=== PATIENT | male | born 1955 | race Caucasian/White ===

== ENCOUNTER → 2023-03-07 10:39 | Outpatient (CLI) | payer MEDICARE, SELFPAY ==
[2023-03-07 12:36] LABS: Alanine Aminotransferase 26 IU/L (<50); Albumin 4.1 g/dL (3.5-5.0); Albumin Globulin Ratio 1.4 (1.0-2.8); Alkaline Phosphatase 61 U/L (38-126); Aspartate Aminotransferase 25 IU/L (17-59); BUN Creatinine Ratio 20.5 (6-22); Bilirubin Total 0.6 mg/dL (0.2-1.3); Blood Urea Nitrogen 18 mg/dL (9-20); Calcium 8.6 mg/dL (8.4-10.2); Carbon Dioxide 30 mmol/L (22-32); Chloride 102 mmol/L (98-107); Cholesterol 202 mg/dL (140-199); Estimated Glomerular Filt Rate > 60 mL/min (>60); Globulin 2.9 g/dL (1.7-4.1); Glucose 94 mg/dL (80-110); HDL Cholesterol 66 mg/dL (40-60); HEMOLYSIS < 15 (0-50); LDL Cholesterol Calculated 112 mg/dL (<100); Potassium 3.9 mmol/L (3.4-5.1); Sodium 137 mmol/L (137-145); Triglycerides 121 mg/dL (35-150)
[2023-03-08 06:05] LABS: Labcorp Hemoglobin (Hb) A1c 5.6 % (4.8-5.6)
== END ==
PROVIDERS: PCP Family Medicine; Referring Provider Family Medicine; Visit Provider Family Medicine
DX: I10 Essential (primary) hypertension; F41.1 Generalized anxiety disorder
CPT/HCPCS: 36415; 80053; 80061; 83036

== ENCOUNTER → 2024-05-02 09:47 | Outpatient (CLI) | payer MEDICARE, SELFPAY ==
--- NOTE | 2024-05-02 09:49 | DI.NM.S_ITS ---
PROCEDURE: NM BONE 3 PHASE RADIOPHARMACEUTICAL: 21.4 mCi Tc-99m MDP IV. INDICATIONS: Pain due to internal orthopedic prosthetic devices TECHNIQUE: Multiple bone scintigrams were obtained after intravenous injection of Tc-99m MDP, including flow, blood pool, and delayed images centered to the region of interest. COMPARISON: [facility], CR, XR KNEE 4+ VIEWS LEFT, 04/10/2024, 9:08. FINDINGS: Flow images are relatively symmetric. Blood pool images shows very slightly increased right to radiotracer uptake. There is photopenia corresponding to the left knee arthroplasty. Delayed images show ibik-dv-agbsduji uptake surrounding the left knee arthroplasty, particularly at the tibial component, and patella. Slightly more significant periarticular uptake is seen in the right knee, corresponding to advanced degenerative changes. IMPRESSION: Ytdi-ph-lateajlz uptake around the left knee arthroplasty particularly at the patellar and tibial component, likely postsurgical changes. Differential includes early loosening. Lack of flow and blood pool uptake argues against infection. Slightly more intense uptake around the right knee, likely advanced degenerative changes. Dictated by: Jimmy Tellez M.D. on 05/02/2024 at 16:28 Approved by: Jimmy Tellez M.D. on 05/02/2024 at 16:31
--- NOTE | 2024-05-02 10:17 | DI.MRI.S_ITS ---
PROCEDURE: MR CERVICAL SPINE WO CON INDICATIONS: RADICULOPATHY TECHNIQUE: Noncontrast sagittal T1 spin echo and T2 fast spin echo, sagittal STIR, foraminal oblique sagittal T2 fast spin echo, and axial gradient echo or T2 fast spin echo through the cervical spine. COMPARISON: None. FINDINGS: Image quality: Excellent. Alignment and Curvature: Trace anterolisthesis C2 on C3. Trace anterolisthesis C5 on C6. Bone Marrow: Marrow demonstrates normal overall signal. Spinal Cord: Visualized spinal cord has normal size and signal. No cerebellar tonsillar herniation. Paraspinous Soft Tissues: No paravertebral masses. Prevertebral soft tissues are normal in thickness. C2-C3: No canal stenosis. Exuberant left facet hypertrophy. Moderate to severe left foraminal narrowing with a degree of left foraminal C3 nerve root impingement. C3-C4: Diffuse posterior disc post osteophyte. No central canal stenosis. AP diameter of the central canal is 12.0 mm. Bilateral uncovertebral joint hypertrophy and facet hypertrophy. Left facet hypertrophy is prominent. Moderate right foraminal narrowing. Severe left foraminal narrowing with a degree of left foraminal C4 nerve root impingement. C4-C5: No central canal stenosis. Prominent bilateral uncovertebral joint hypertrophy. Moderate to severe right foraminal narrowing and severe left foraminal narrowing with bilateral foraminal C5 nerve root impingement. C5-C6: Severe chronic disc height loss. Mild posterior disc post osteophyte. No central canal stenosis. Bilateral uncovertebral joint hypertrophy. Moderate to severe bilateral foraminal narrowing with a degree of bilateral foraminal C6 nerve root impingement. C6-C7: Chronic disc height loss. Posterior diffuse disc plus osteophyte. No central canal stenosis. Bilateral uncovertebral joint hypertrophy. Moderate to severe bilateral foraminal narrowing with a degree of bilateral foraminal C7 nerve root impingement. C7-T1: Chronic disc height loss. Posterior disc post osteophyte. Bilateral uncovertebral joint hypertrophy. Moderate bilateral foraminal narrowing IMPRESSION: 1. Diffuse cervical spondylitic change with multilevel uncovertebral joint hypertrophy and facet arthropathy. 2. No central canal stenosis. 3. Significant multilevel foraminal narrowing as described above. Findings include foraminal nerve root impingement on the left at C2-C3 and C3-C4, and bilaterally at C4-C5, C5-C6, and C6-C7. Dictated by: Sundar Tsang M.D. on 05/02/2024 at 15:20 Approved by: Sundar Tsang M.D. on 05/02/2024 at 15:27
== END ==
LOC: NUCM 09:49
PROVIDERS: PCP Family Medicine; Referring Provider Orthopaedic Surgery Foot and Ankle Surgery; Visit Provider Orthopaedic Surgery Foot and Ankle Surgery
DX: M47.22 Other spondylosis with radiculopathy, cervical region (principal); T84.84XA Pain due to internal orthopedic prosthetic devices, implants and grafts, initial encounter; M48.02 Spinal stenosis, cervical region
CPT/HCPCS: 72141; 78315; A9503

== ENCOUNTER → 2025-08-26 11:48 | Outpatient (CLI) | payer MEDICARE, SELFPAY ==
[2025-08-26 13:58] LABS: Add Manual Diff / Slide Review NO; Hematocrit 41.4 % (41-53); Hemoglobin 14.2 g/dL (13.5-17.5); Lymphocytes Absolute Auto 1400 /uL (1100-4500); Mean Corpuscular HGB Conc 34.3 % (30-36); Mean Corpuscular Hemoglobin 30.2 PG (26-34); Mean Corpuscular Volume 88.1 fL (80-100); Platelet Count 165 X10^3/uL (150-400)
[2025-08-26 14:08] LABS: Alanine Aminotransferase 23 IU/L (<50); Albumin 4.1 g/dL (3.5-5.0); Albumin Globulin Ratio 1.5 (1.0-2.8); Alkaline Phosphatase 70 U/L (38-126); Blood Urea Nitrogen 18 mg/dL (9-20); Calcium 8.9 mg/dL (8.4-10.2); Carbon Dioxide 27 mmol/L (22-32); Chloride 102 mmol/L (98-107); Cholesterol 201 mg/dL (140-199); Estimated Glomerular Filt Rate > 60 mL/min (>60); Globulin 2.8 g/dL (1.7-4.1); Glucose 96 mg/dL (70-99); HDL Cholesterol 73 mg/dL (40-60); HEMOLYSIS < 15 (0-50); Potassium 4.0 mmol/L (3.4-5.1); Sodium 137 mmol/L (137-145); Total Protein 6.9 g/dL (6.3-8.2); Triglycerides 82 mg/dL (35-150)
== END ==
PROVIDERS: PCP Family Medicine; Referring Provider Family Medicine; Visit Provider Family Medicine
DX: F32.89 Other specified depressive episodes (principal); I10 Essential (primary) hypertension; G47.33 Obstructive sleep apnea (adult) (pediatric); Z99.89 Dependence on other enabling machines and devices; R05.3 Chronic cough; M54.9 Dorsalgia, unspecified; G89.29 Other chronic pain
CPT/HCPCS: 36415; 80053; 80061; 85025

== ENCOUNTER → 2025-10-24 13:41 | Outpatient (CLI) | payer MEDICARE, SELFPAY | LOC: CAR 13:42 | PROVIDERS: PCP Family Medicine; Referring Provider Family Medicine; Visit Provider Family Medicine | DX: R00.2 Palpitations (principal) | CPT/HCPCS: 93246 ==